=== PATIENT | male | born 1965 | race Two or more races ===

== ENCOUNTER 2021-02-19 17:09 | Inpatient (IN) | payer MEDICAID, OTHER ==
[~2021-02-19] VITALS: Ht 188 cm; Wt 92.7 kg
[2021-02-19] MEDS ORDERED: SODIUM CHLORIDE 0.9% 1,000 ML IV ONE (17:15)
[2021-02-19 17:43] LABS: BASOPHILS % 1.2 % (0.0-2.0); EOSINOPHILS % 0.3 % (0.0-5.0); HEMATOCRIT. 43.5 % (42.0-52.0); HEMOGLOBIN. 14.8 g/dL (14.0-18.0); LYMPHOCYTES % 25.7 % (20.0-50.0); MEAN CORPUSCULAR HEMOGLOBIN 30.3 pg (28.0-32.0); MEAN CORPUSCULAR VOLUME 88.8 fL (80.0-94.0); MEAN PLATELET VOLUME 8.1 fl (7.4-10.4); MONOCYTES % 14.9 % (2.0-8.0); NEUTROPHILS % 57.9 % (40.0-76.0); PLATELET 143 x1000/uL (130-400); RED CELL DISTRIBUTION WIDTH 13.2 % (11.6-14.6)
[2021-02-19 17:49] LABS: CHLORIDE 103 mEq/L (98-107)
[2021-02-19] MEDS ORDERED: AMIODARONE HCL 900 MG in DEXT 5% WATER 482 ML IV STA ×2 (17:50→18:21)
[2021-02-19 17:54] LABS: ETHANOL BLOOD < 10 mg/dL
[2021-02-19 17:55] LABS: INR 1.1; PARTIAL THROMBOPLASTIN TIME 27.5 sec (23.4-31.0); PROTHROMBIN TIME 11.9 sec (9.6-11.0)
[2021-02-19] MEDS ORDERED: MAGNESIUM 2 G PREMIX 50 ML IV ONE (18:30)
[2021-02-19] MEDS ORDERED: POTASSIUM CHLORIDE 20MEQ TABLET SR PO ONE (18:30)
[2021-02-19] MEDS ORDERED: AMIODARONE HCL 900 MG in DEXT 5% WATER 482 ML IV PRN (20:15)
[2021-02-19] MEDS ORDERED: MAGNESIUM/ALUMINUM HYDROXIDE/SIMETHICONE 30ML UDC PO PRN (20:15)
[2021-02-19] MEDS ORDERED: HYDROCODONE/ACETAMINOPHEN 5/325MG TABLET PO PRN (20:15)
[2021-02-19] MEDS ORDERED: ACETAMINOPHEN 325MG TABLET PO PRN (20:15)
[2021-02-19] MEDS ORDERED: GUAIFENESIN 200MG/10ML SUGAR FREE UDC PO PRN (20:15)
[2021-02-19] MEDS ORDERED: NALOXONE HCL 0.4MG/ML VIAL IV PRN (20:15)
[2021-02-19] MEDS ORDERED: HYDROMORPHONE HCL/PF 2MG/ML CPJ IV PRN (20:15)
[2021-02-19] MEDS ORDERED: ONDANSETRON HCL 4MG/2ML INJ IV PRN (20:15)
[2021-02-19] MEDS ORDERED: DOCUSATE SODIUM 100MG CAPSULE PO PRN (20:15)
[2021-02-19] MEDS: ENOXAPARIN 40MG/0.4ML SYR SUBCUT SCH (20:46)
[2021-02-19 22:56] VITALS: BP 129/89
[2021-02-19] MEDS ORDERED: AMLO10TA4 MT (23:13)
[2021-02-20] VITALS (16 sets, daily range): BP systolic 98–148; BP diastolic 65–101
[2021-02-20 07:18] LABS: HEMATOCRIT. 39.7 % (42.0-52.0); HEMOGLOBIN. 13.3 g/dL (14.0-18.0); MEAN CORPUSCULAR VOLUME 89.4 fL (80.0-94.0); MEAN PLATELET VOLUME 8.8 fl (7.4-10.4); PLATELET 104 x1000/uL (130-400); RED BLOOD CELL COUNT 4.44 mill/uL (4.7-6.1); RED CELL DISTRIBUTION WIDTH 13.6 % (11.6-14.6)
[2021-02-20 08:28] LABS: CHLORIDE 105 mEq/L (98-107)
[2021-02-20 08:42] LABS: HDL CHOLESTEROL 18 mg/dL (40-59)
[2021-02-20 08:43] LABS: LDL CHOLESTEROL 53 mg/dL (5-100)
[2021-02-20 08:45] LABS: CREATINE KINASE 345 IU/L (39-308)
[2021-02-20 08:46] LABS: T4 FREE 1.14 ng/dL (0.76-1.46)
[2021-02-20 13:55] LABS: *AMPHETAMINES SCREEN URINE NEGATIVE (NEGATIVE); *BARBITURATES SCREEN URINE NEGATIVE (NEGATIVE); *BENZODIAZEPINES SCREEN URINE NEGATIVE (NEGATIVE)
[2021-02-20 13:56] LABS: *COCAINE SCREEN URINE NEGATIVE (NEGATIVE); METHADONE URINE SCREEN NEGATIVE (NEGATIVE); OPIATES URINE SCREEN NEGATIVE (NEGATIVE); PHENCYCLIDINE URINE SCREEN NEGATIVE (NEGATIVE)
[2021-02-20 13:57] LABS: CANNABINOID URINE SCREEN NEGATIVE (NEGATIVE)
[2021-02-20 14:04] LABS: CLARITY URINE CLOUDY (CLEAR); COLOR URINE DARK YELLOW (YELLOW); KETONES URINE TRACE (NEGATIVE); LEUKOCYTE ESTERASE URINE TRACE (NEGATIVE); NITRITE URINE NEGATIVE (NEGATIVE); OCCULT BLOOD URINE NEGATIVE (NEGATIVE); PH URINE 5.5 (4.5-8.0); PROTEIN URINE 1+ (NEGATIVE); SPECIFIC GRAVITY URINE 1.026 (1.005-1.030)
[2021-02-20] MEDS ORDERED: REGADENOSON 0.4 MG/5 ML IV ONE (14:15)
[2021-02-20 17:25] LABS: PLATELET ESTIMATE DECREASED
[2021-02-20] MEDS: ENOXAPARIN 40MG/0.4ML SYR SUBCUT SCH (20:48)
[2021-02-21] VITALS (9 sets, daily range): BP systolic 105–149; BP diastolic 72–97
[2021-02-21] MEDS ORDERED: COLC0.6C3 MT (08:20)
[2021-02-21] MEDS ORDERED: COLCHICINE 0.6MG TABLET PO SCH (11:00)
[2021-02-21] MEDS ORDERED: REGADENOSON 0.4 MG/5 ML IV ONE (11:12)
[2021-02-21] MEDS ORDERED: AMLODIPINE 10MG TABLET PO SCH (12:00)
== END 2021-02-21 15:02 | disposition home or self-care (01) | DRG 201 ==
LOC: ER 17:09 → 3WST 18:33 → EDBEDREQTM 20:41 → EDBEDREQSVC 20:41 → ENRESERV 21:57
PROVIDERS: ADMIT Hospitalist; ATTEND Hospitalist
DX: I47.1 Supraventricular tachycardia (principal); N17.0 Acute kidney failure with tubular necrosis; K76.0 Fatty (change of) liver, not elsewhere classified; E78.1 Pure hyperglyceridemia; E87.6 Hypokalemia; F10.10 Alcohol abuse, uncomplicated; F17.200 Nicotine dependence, unspecified, uncomplicated; I10 Essential (primary) hypertension; M19.90 Unspecified osteoarthritis, unspecified site; R74.01 Elevation of levels of liver transaminase levels; Y90.9 Presence of alcohol in blood, level not specified; Z20.822 Contact with and (suspected) exposure to COVID-19; Z82.49 Family history of ischemic heart disease and other diseases of the circulatory system
CPT/HCPCS: 36415; 71045; 76700; 78452; 80053; 80061; 80305; 80320; 81003; 82550; 83735; 83880; 84439; 84443; 84484; 85025; 87426; 93005; 93017; 93306; 93970; 99291; A9500; J0282; J1650; J2785; J3475; J7030; J7060; G0480

== ENCOUNTER 2022-07-19 15:14 | Emergency (ER) | payer OTHER ==
[~2022-07-19] VITALS: Ht 188 cm; Wt 113.0 kg
[~2022-07-19 15:14] MED LIST: AMLO10TA4 MT; COLC0.6C3 MT
[2022-07-19 15:42] LABS: BASOPHILS % 0.7 % (0.0-2.0); EOSINOPHILS % 0.5 % (0.0-5.0); HEMATOCRIT. 43.4 % (42.0-52.0); HEMOGLOBIN. 14.5 g/dL (14.0-18.0); LYMPHOCYTES % 18.7 % (20.0-50.0); MEAN CORPUSCULAR HEMOGLOBIN 28.4 pg (28.0-32.0); MEAN CORPUSCULAR VOLUME 85.1 fL (80.0-94.0); MEAN PLATELET VOLUME 8.3 fl (7.4-10.4); MONOCYTES % 8.2 % (2.0-8.0); NEUTROPHILS % 71.9 % (40.0-76.0); PLATELET 217 x1000/uL (130-400); RED CELL DISTRIBUTION WIDTH 15.8 % (11.6-14.6)
[2022-07-19] MEDS ORDERED: DILTIAZEM HCL 5MG/ML 5ML VIAL IV ONE ×2 (15:45→16:15)
[2022-07-19 15:50] LABS: CHLORIDE 105 mEq/L (98-107)
[2022-07-19] MEDS ORDERED: DILTIAZEM HCL 30MG TABLET PO ONE (16:15)
[2022-07-19] MEDS ORDERED: ASPIRIN 325MG TABLET PO ONE (16:45)
[2022-07-19 17:10] VITALS: BP 129/76
== END 2022-07-19 17:36 | disposition left against medical advice (07) ==
LOC: ER 15:14
DX: I48.91 Unspecified atrial fibrillation (principal); F10.229 Alcohol dependence with intoxication, unspecified; I10 Essential (primary) hypertension; F17.200 Nicotine dependence, unspecified, uncomplicated
CPT/HCPCS: 36415; 71045; 80053; 83880; 84484; 85025; 93005; 96374; 99285; J3490; Z7610